=== PATIENT | female | born 1945 | race Caucasian/White ===

== ENCOUNTER → 2017-05-15 | Outpatient (REF) | payer MEDICARE, OTHER ==
[2017-05-15 12:39] LABS: CALCIUM LEVEL 9.4 MG/DL (8.8-10.2)
== END ==
LOC: M LABDRAW1 12:16
PROVIDERS: ATTEND Internal Medicine Endocrinology, Diabetes & Metabolism
DX: M81.0 Age-related osteoporosis without current pathological fracture (principal)

== ENCOUNTER → 2017-11-12 | Outpatient (REF) | payer MEDICARE, OTHER ==
[2017-11-12 12:11] LABS: CALCIUM LEVEL 9.3 MG/DL (8.8-10.2)
== END ==
LOC: M LABDRAW1 08:20
DX: M81.0 Age-related osteoporosis without current pathological fracture (principal)
CPT/HCPCS: 82310

== ENCOUNTER → 2018-04-16 | Outpatient (CLI) | payer MEDICARE, OTHER | LOC: M WUC 10:18 | DX: J18.9 Pneumonia, unspecified organism (principal); R05 Cough | CPT/HCPCS: 71046 ==

== ENCOUNTER 2018-04-19 13:08 | Inpatient (IN) | payer MEDICARE, OTHER ==
[2018-04-19] MEDS: IPRATROPIUM 0.5MG/ALBUTEROL 2.5MG INH SOL UD 3ML (DUONEB)(J7620) NEB (14:09)
[2018-04-19 14:13] LABS: ABG BASE EXCESS 2.3 (-2.0-2.0); ABG HCO3 24.8 MEQ/L (22.0-26.0); ABG O2 SATURATION 91.3 % (95.0-99.0); ABG PARTIAL PRESSURE CO2 31.9 mmHg (35.0-45.0); ABG PARTIAL PRESSURE O2 56.7 mmHg (75.0-100.0); ABG STANDARD HCO3 26.4 MEQ/L (22.0-26.0); ABG TOTAL CO2 25.7 MEQ/L (23.0-31.0); ABG pH (ARTERIAL) 7.508 UNITS (7.350-7.450)
[2018-04-19 14:25] LABS: BASO % 0.1 % (0.0-1.0); HEMATOCRIT 38.6 % (36.0-47.0); HEMOGLOBIN 13.3 g/dl (12.0-15.5); IMMATURE GRANULOCYTE % 0.8 % (0-3.0); LYMPH # 1.7 10^3/uL (1.5-4.5); LYMPH % 15.7 % (24.0-44.0); MEAN CORPUSCULAR HEMOGLOBIN 32.6 pg (27.0-33.0); MEAN CORPUSCULAR HGB CONC 34.5 g/dl (32.0-36.5); MEAN CORPUSCULAR VOLUME 94.6 fl (80.0-96.0); MONO # 0.9 10^3/uL (0.0-0.8); MONO % 8.6 % (0.0-5.0); NEUTROPHILS # 7.9 10^3/uL (1.8-7.7); NEUTROPHILS % 74.8 % (36.0-66.0); PLATELET COUNT, AUTOMATED 506 10^3/uL (150-450); RED BLOOD COUNT 4.08 10^6/uL (4.00-5.40); RED CELL DISTRIBUTION WIDTH 12.2 % (11.5-14.5); WHITE BLOOD COUNT 10.5 10^3/uL (4.0-10.0)
[2018-04-19 14:36] LABS: INR 0.94; PROTHROMBIN TIME 12.6 SECONDS (12.1-14.4)
[2018-04-19 14:59] LABS: ALBUMIN/GLOBULIN RATIO 0.81 (1.00-1.93); ALKALINE PHOSPHATASE 44 U/L (45-117); ALT/SGPT 39 U/L (12-78); ANION GAP 8 MEQ/L (8-16); AST/SGOT 19 U/L (7-37); BILIRUBIN,DIRECT 0.1 MG/DL (0.0-0.2); BILIRUBIN,TOTAL 0.4 MG/DL (0.2-1.0); BLOOD UREA NITROGEN 8 MG/DL (7-18); CALCIUM LEVEL 8.8 MG/DL (8.8-10.2); CARBON DIOXIDE LEVEL 30 MEQ/L (21-32); CHLORIDE LEVEL 99 MEQ/L (98-107); CPK CREATINE PHOSPHOKINASE 68 U/L (26-192); CREATININE FOR GFR 0.55 MG/DL (0.55-1.30); GLOMERULAR FILTRATION RATE > 60.0 (>39); GLUCOSE, FASTING 89 MG/DL (70-100); MB/CK RELATIVE INDEX 1.76 (< OR =4); NT-PRO BNP 178 PG/ML (<125); POTASSIUM SERUM 4.2 MEQ/L (3.5-5.1); SODIUM LEVEL 137 MEQ/L (136-145); THYROID STIMULATING HORMONE 0.518 uIU/ML (0.358-3.740); TOTAL PROTEIN 6.7 GM/DL (6.4-8.2); TROPONIN I < 0.02 NG/ML (< 0.10)
[2018-04-19] MEDS ORDERED: ISOVUE-370 76% 100ML VIAL (Q9967) As Ordered (15:15)
[2018-04-19] MEDS: AZITHROMYCIN INJ 500 MG, VIAL MATE ADAPTER 1 EACH in D5W 250 ML IV (16:15)
[2018-04-19] MEDS: cefTRIAXone SOD 1 GM in D5W MINI-BAG PLUS 50 ML IV (16:15)
[2018-04-19] MEDS ORDERED: ONDANSETRON 4MG/2ML VIAL (J2405) IV (17:15)
[2018-04-19] MEDS ORDERED: ACETAMINOPHEN 325 MG TAB PO (17:15)
[2018-04-19] MEDS ORDERED: IBUPROFEN 200 MG TAB PO (17:15)
[2018-04-19] MEDS ORDERED: ACETAMINOPHEN TAB 650MG DOSE (2X325MG) PO (17:31)
[2018-04-19] MEDS ORDERED: IBUPROFEN 600 MG TAB PO (17:31)
[2018-04-20] MEDS: NICOTINE 14 MG/24 HR TRANSDERMAL TD ×2 (00:31→09:00)
[2018-04-20] MEDS: predniSONE 20 MG TAB PO ×2 (00:31→09:04)
[2018-04-20 07:14] LABS: HEMOGLOBIN 13.4 g/dl (12.0-15.5); MEAN CORPUSCULAR HEMOGLOBIN 32.2 pg (27.0-33.0); MEAN CORPUSCULAR HGB CONC 33.5 g/dl (32.0-36.5); MEAN CORPUSCULAR VOLUME 96.2 fl (80.0-96.0); PLATELET COUNT, AUTOMATED 499 10^3/uL (150-450); RED BLOOD COUNT 4.16 10^6/uL (4.00-5.40); RED CELL DISTRIBUTION WIDTH 12.4 % (11.5-14.5); WHITE BLOOD COUNT 10.1 10^3/uL (4.0-10.0)
[2018-04-20 07:32] LABS: ANION GAP 7 MEQ/L (8-16); BLOOD UREA NITROGEN 8 MG/DL (7-18); CALCIUM LEVEL 8.6 MG/DL (8.8-10.2); CARBON DIOXIDE LEVEL 28 MEQ/L (21-32); CHLORIDE LEVEL 101 MEQ/L (98-107); CREATININE FOR GFR 0.48 MG/DL (0.55-1.30); GLOMERULAR FILTRATION RATE > 60.0 (>39); GLUCOSE, FASTING 155 MG/DL (70-100); POTASSIUM SERUM 3.9 MEQ/L (3.5-5.1); SODIUM LEVEL 136 MEQ/L (136-145)
[2018-04-20] MEDS: AZITHROMYCIN 250 MG TAB PO (09:04)
[2018-04-20] MEDS: VITAMIN D 1,000 INTERNATIONAL UNITS TABLET PO (09:04)
[2018-04-20] MEDS: MULTIVITAMINS/MINERALS THERAP 1 TAB PO (09:04)
[2018-04-20] MEDS: IPRATROPIUM 0.5MG/ALBUTEROL 2.5MG INH SOL UD 3ML (DUONEB)(J7620) NEB ×2 (09:36→15:01)
[2018-04-20] MEDS: ENOXAPARIN 30 MG/0.3 ML SYR (J1650) SC (13:44)
[2018-04-20] MEDS: cefTRIAXone SOD 1 GM in D5W MINI-BAG PLUS 50 ML IV (17:09)
[2018-04-20] MEDS: ALBUTEROL SULFATE 2.5 MG/0.5 ML INH NEB SOLN NEB (20:45)
[2018-04-21] MEDS: ALBUTEROL SULFATE 2.5 MG/0.5 ML INH NEB SOLN NEB ×2 (07:21→11:12)
[2018-04-21] MEDS: NICOTINE 14 MG/24 HR TRANSDERMAL TD (08:33)
[2018-04-21] MEDS: predniSONE 20 MG TAB PO (10:12)
[2018-04-21] MEDS: AZITHROMYCIN 250 MG TAB PO (10:12)
[2018-04-21] MEDS: VITAMIN D 1,000 INTERNATIONAL UNITS TABLET PO (10:12)
[2018-04-21] MEDS: MULTIVITAMINS/MINERALS THERAP 1 TAB PO (10:12)
[2018-04-21] MEDS: ENOXAPARIN 30 MG/0.3 ML SYR (J1650) SC (10:13)
== END 2018-04-21 14:52 | disposition home or self-care (01) | DRG 190 ==
LOC: M MS4PR 04-20 00:10 → M ED 13:08 → M ED INP 17:12
DX: J44.1 Chronic obstructive pulmonary disease with (acute) exacerbation (principal); J18.9 Pneumonia, unspecified organism; R91.1 Solitary pulmonary nodule; F17.210 Nicotine dependence, cigarettes, uncomplicated; Z79.52 Long term (current) use of systemic steroids; Z79.51 Long term (current) use of inhaled steroids; Z79.899 Other long term (current) drug therapy; Z88.4 Allergy status to anesthetic agent

== ENCOUNTER → 2018-05-16 | Outpatient (REF) | payer MEDICARE, OTHER ==
[2018-05-16 13:05] LABS: TOTAL 25(OH) VITAMIN D 78.7 NG/ML (30.0-100.0)
== END ==
LOC: M LABDRAW1 08:07
DX: M81.0 Age-related osteoporosis without current pathological fracture (principal); E55.9 Vitamin D deficiency, unspecified
CPT/HCPCS: 82310

== ENCOUNTER → 2018-09-18 | Outpatient (CLI) | payer MEDICARE, OTHER ==
[~2018-09-18] MED LIST: ACET1TAB55 PO; ALBU83IN INH; CALCTAB68 PO; DOXY100T PO; IBUPOTC PO; LEVA1TAB2 PO; PATA2.5S OU; PRED10TA2 PO; PRED20TA PO; SPIR1CAP INH; VITA-122 PO; VITMTA PO
--- NOTE | 2018-09-18 10:46 | REP ---
Lower Extremity vein mapping: Right Reflux Left Reflux CFV Reflux no no Ant. Acc. GSV Present no no Reflux no no Greater saph/fem junction 2.3 mm no 2.7 mm no Greater saph vein mid thigh 2.6 mm no 3.0 mm no Greater saph vein at knee 2.6 mm no 3.3 mm no Greater saph vein below knee -- mm -- --- mm -- SFV PROX -- mm no -- mm no SFV MID -- mm no -- mm no SFV DISTAL -- mm no --mm no POPLITEAL VEIN -- mm no -- mm no LSV -- mm no -- mm no Impression: There is no reflux seen in the deep or superficial venous systems in the right lower extremity or in the left lower extremity. Bilateral lower extremity deep vein duplex ultrasound: The deep veins demonstrate normal compression, normal Doppler color flow and normal Doppler waveforms with respiration and augmentation from the popliteal veins to the common femoral veins bilaterally . Impression: There is no deep vein thrombus in the right lower extremity or left lower extremity . Electronically Signed by Oscar Escobar MD 09/18/2018 10:38 A
== END ==
LOC: M RAD 08:21
PROVIDERS: ATTEND Surgery Vascular Surgery
DX: M79.604 Pain in right leg (principal); M79.605 Pain in left leg

== ENCOUNTER → 2018-11-18 | Outpatient (REF) | payer MEDICARE, OTHER | LOC: M LABDRAW1 11:59 | PROVIDERS: ATTEND Nurse Practitioner Family | DX: M81.0 Age-related osteoporosis without current pathological fracture (principal) ==

== ENCOUNTER → 2019-05-29 | Outpatient (REF) | payer MEDICARE, OTHER ==
[2019-05-29 12:34] LABS: CALCIUM LEVEL 8.9 MG/DL (8.8-10.2)
[2019-05-29 12:50] LABS: TOTAL 25(OH) VITAMIN D 56.2 NG/ML (30.0-100.0)
== END ==
LOC: M LABDRAW1 11:20
PROVIDERS: ATTEND Nurse Practitioner Family
DX: M81.0 Age-related osteoporosis without current pathological fracture (principal); E55.9 Vitamin D deficiency, unspecified

== ENCOUNTER → 2019-10-06 | Outpatient (CLI) | payer MEDICARE, OTHER ==
[~2019-10-06] MED LIST changes: +FERR325T18 PO; +OYST500T12 PO; +VITA500T9 PO
== END ==
LOC: M LABSMTC 12:22
PROVIDERS: ATTEND Anesthesiology
DX: Z11.59 Encounter for screening for other viral diseases (principal)

== ENCOUNTER 2019-10-09 11:29 | Day surgery (SDC) | payer MEDICARE, OTHER ==
[~2019-10-09] VITALS: Ht 154.9 cm; Wt 40.8 kg
[~2019-10-09 11:29] MED LIST changes: +LIDOCAINE 2% MDV 20ML VIAL As Ordered ONE; +NS 1,000 ML IV ONE; +fentaNYL 100 MCG/2 ML INJECTION (J3010) As Ordered ONE; +propofoL 500 MG/50 ML VIAL As Ordered ONE
--- NOTE | 2019-10-09 12:33 | ROOR ---
Patient Name: Jade Givens Procedure Date: 10/09/2019 11:56 AM Date of : 1945 Age: 74 Room: [facility] [place] Gender: Female Note Status: Finalized Procedure: Upper GI endoscopy Indications: Weight loss Providers: Pedrito Vazquez Jr, MD Referring MD: Mary Quach NP Requesting Provider: Medicines: Propofol per Anesthesia Complications: No immediate complications. Procedure: Pre-Anesthesia Assessment: - Prior to the procedure, a History and Physical was performed, and patient medications and allergies were reviewed. The patient is competent. The risks and benefits of the procedure and the sedation options and risks were discussed with the patient. All questions were answered and informed consent was obtained. Patient identification and proposed procedure were verified by the physician and the nurse in the pre-procedure area and in the procedure room. Mental Status Examination: alert and oriented. Airway Examination: normal oropharyngeal airway and neck mobility. Respiratory Examination: clear to auscultation. CV Examination: normal. ASA Grade Assessment: II - A patient with mild systemic disease. After reviewing the risks and benefits, the patient was deemed in satisfactory condition to undergo the procedure. The anesthesia plan was to use moderate sedation / analgesia (conscious sedation). Immediately prior to administration of medications, the patient was re-assessed for adequacy to receive sedatives. The heart rate, respiratory rate, oxygen saturations, blood pressure, adequacy of pulmonary ventilation, and response to care were monitored throughout the procedure. The physical status of the patient was re-assessed after the procedure. The Endoscope was introduced through the mouth, and advanced to the second part of duodenum. The upper GI endoscopy was accomplished without difficulty. The patient tolerated the procedure well. Findings: The upper third of the esophagus, middle third of the esophagus, lower third of the esophagus and gastroesophageal junction were normal. The cardia and gastric fundus were normal. Diffuse moderate inflammation characterized by congestion (edema), erythema, friability and granularity was found in the gastric body. Localized nodular mucosa was found in the gastric antrum. Biopsies were taken with a cold forceps for histology. The duodenal bulb, first portion of the duodenum and second portion of the duodenum were normal. Impression: - Normal upper third of esophagus, middle third of esophagus, lower third of esophagus and gastroesophageal junction. - Normal cardia and gastric fundus. - Gastritis. - Nodular mucosa in the gastric antrum WITH AN POSSIBLE SUBMUCOSAL MASS. Biopsied. - Normal duodenal bulb, first portion of the duodenum and second portion of the duodenum. Recommendation: - Discharge patient to home (ambulatory). - Return to my office in 1 week. Pedrito Vazquez MD Pedrito Vazquez Jr, MD 10/09/2019 12:32:53 PM Electronically signed by Pedrito Vazquez Jr, MD Number of Addenda: 0 Note Initiated On: 10/09/2019 11:56 AM Estimated Blood Loss: Estimated blood loss: none.
--- NOTE | 2019-10-09 12:35 | ROOR ---
Patient Name: Jade Givens Procedure Date: 10/09/2019 11:57 AM Date of : 1945 Age: 74 Room: [facility] Gender: Female Note Status: Finalized Procedure: Colonoscopy Indications: Weight loss Providers: Pedrito Vazquez Jr, MD Referring MD: Mary Quach NP Requesting Provider: Medicines: Propofol per Anesthesia Complications: No immediate complications. Procedure: Pre-Anesthesia Assessment: - Prior to the procedure, a History and Physical was performed, and patient medications and allergies were reviewed. The patient is competent. The risks and benefits of the procedure and the sedation options and risks were discussed with the patient. All questions were answered and informed consent was obtained. Patient identification and proposed procedure were verified by the physician and the nurse in the pre-procedure area and in the procedure room. Mental Status Examination: alert and oriented. Airway Examination: normal oropharyngeal airway and neck mobility. Respiratory Examination: clear to auscultation. CV Examination: normal. ASA Grade Assessment: II - A patient with mild systemic disease. After reviewing the risks and benefits, the patient was deemed in satisfactory condition to undergo the procedure. The anesthesia plan was to use moderate sedation / analgesia (conscious sedation). Immediately prior to administration of medications, the patient was re-assessed for adequacy to receive sedatives. The heart rate, respiratory rate, oxygen saturations, blood pressure, adequacy of pulmonary ventilation, and response to care were monitored throughout the procedure. The physical status of the patient was re-assessed after the procedure. The Colonoscope was introduced through the anus and advanced to the cecum, identified by appendiceal orifice and ileocecal valve. The colonoscopy was performed without difficulty. The patient tolerated the procedure well. The quality of the bowel preparation was adequate. Findings: The rectum, recto-sigmoid colon, descending colon, transverse colon, ascending colon, cecum, appendiceal orifice and ileocecal valve appeared normal. Multiple small and large-mouthed diverticula were found in the sigmoid colon. Impression: - No specimens collected. Recommendation: - Discharge patient to home (ambulatory). - Repeat colonoscopy in 10 years for screening purposes. Pedrito Vazquez MD Pedrito Vazquez Jr, MD 10/09/2019 12:34:35 PM Electronically signed by Pedrito Vazquez Jr, MD Number of Addenda: 0 Note Initiated On: 10/09/2019 11:57 AM Estimated Blood Loss: Estimated blood loss: none. Estimated blood loss: none.
[2019-10-09 13:01] VITALS: BP 169/70
== END 2019-10-09 13:28 | disposition home or self-care (01) ==
LOC: M OPP 11:29
PROVIDERS: ATTEND Surgery
DX: K29.70 Gastritis, unspecified, without bleeding (principal); K31.89 Other diseases of stomach and duodenum; R63.4 Abnormal weight loss; J44.9 Chronic obstructive pulmonary disease, unspecified; F17.220 Nicotine dependence, chewing tobacco, uncomplicated; Z88.6 Allergy status to analgesic agent; Z79.899 Other long term (current) drug therapy
CPT/HCPCS: 43239; 45378; 88305; 88341; 88342; J3010

== ENCOUNTER → 2019-10-21 | Outpatient (CLI) | payer MEDICARE, OTHER ==
[~2019-10-21] MED LIST changes: -LIDOCAINE 2% MDV 20ML VIAL As Ordered ONE; -NS 1,000 ML IV ONE; -fentaNYL 100 MCG/2 ML INJECTION (J3010) As Ordered ONE; -propofoL 500 MG/50 ML VIAL As Ordered ONE
[2019-10-21 14:19] LABS: BLOOD UREA NITROGEN 13 MG/DL (7-18); CREATININE FOR GFR 0.47 MG/DL (0.55-1.30); GLOMERULAR FILTRATION RATE > 60.0 (>39)
== END ==
LOC: M LAB 12:59
PROVIDERS: ATTEND Surgery
DX: Z01.818 Encounter for other preprocedural examination (principal); R63.4 Abnormal weight loss

== ENCOUNTER → 2019-10-31 | Outpatient (CLI) | payer MEDICARE, OTHER ==
[~2019-10-31] MED LIST changes: +GASTROGRAFIN SOLUTION 30ML (Q9963) As Ordered ONE; +ISOVUE-370 76% 100ML VIAL As Ordered ONE; +PANT40TA3 PO; +TRAM50TA2 PO
--- NOTE | 2019-10-31 10:51 | REP ---
CT ABDOMEN AND PELVIS WITH ORAL AND IV CONTRAST, CT ABDOMEN WITHOUT IV CONTRAST: CT abdomen and pelvis performed following the administration of oral contrast and IV administration of 100 mL of Isovue 370. Pre-IV contrast CT imaging is performed of the abdomen. Sagittal and coronal reconstruction images are performed. There is evidence of advanced neoplastic disease. A prominent old mass in the body and tail of the pancreas measures 4.7 x 2.9 cm. There is adjacent bulky adenopathy which encases the celiac artery and superior mesenteric artery. There is bulky adenopathy along the posterior wall of the stomach in the region of the body and antrum of the stomach, with neoplastic wall thickening of this portion of the stomach. Multiple enhancing soft tissue nodules are seen throughout the mesentery, omentum, and perineal surfaces. Multiple innumerable liver metastases are present, the largest is inferiorly in the right lobe 5.4 cm in diameter. Gallbladder is not well distended. Spleen is normal in size with no intrinsic abnormality The adrenal glands demonstrate no mass. The kidneys demonstrate on mass. There are mildly enlarged periaortic lymph nodes. There is no abdominal aortic aneurysm. There is no free air. There is no evidence of bowel obstruction. There are multiple sigmoid diverticula. There may be some neoplastic wall thickening of the inferior right colon. There is moderate diffuse abdominal and pelvic ascites. No pelvic mass is seen. Urinary bladder is not well distended and not well evaluated. No bone lesion is seen. Lung bases show fibroatelectatic change. 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 Prominent pancreatic mass measures 4.7 x 2.9 cm. There is an adjacent bulky adenopathy encasing the celiac and superior mesenteric arteries. Bulky adenopathy is seen posterior to the stomach with neoplastic wall thickening of the body of the stomach. Diffuse mesenteric adenopathy and scattered omental and peritoneal implants diffusely. There may be some neoplastic wall thickening of the inferior right colon. There are multiple innumerable liver metastases. There is moderate abdominal and pelvic ascites. Electronically Signed by Oscar Sheets MD 10/31/2019 10:54 A
== END ==
LOC: M RAD 07:17
PROVIDERS: ATTEND Surgery
DX: R63.4 Abnormal weight loss (principal); R10.84 Generalized abdominal pain; C78.7 Secondary malignant neoplasm of liver and intrahepatic bile duct; R18.8 Other ascites; C76.8 Malignant neoplasm of other specified ill-defined sites
CPT/HCPCS: 74178; Q9963; Q9967

== ENCOUNTER → 2019-11-05 | Outpatient (CLI) | payer MEDICARE, OTHER ==
[~2019-11-05] MED LIST changes: -GASTROGRAFIN SOLUTION 30ML (Q9963) As Ordered ONE; -ISOVUE-370 76% 100ML VIAL As Ordered ONE
[2019-11-05 15:02] LABS: ALBUMIN 2.7 GM/DL (3.2-5.2); ALT/SGPT 49 U/L (12-78); BILIRUBIN,TOTAL 2.9 MG/DL (0.2-1.0); BLOOD UREA NITROGEN 12 MG/DL (7-18); CARBON DIOXIDE LEVEL 35 MEQ/L (21-32); CHLORIDE LEVEL 92 MEQ/L (98-107); GLOMERULAR FILTRATION RATE > 60.0 (>39); GLUCOSE, FASTING 102 MG/DL (70-100); POTASSIUM SERUM 3.2 MEQ/L (3.5-5.1); SODIUM LEVEL 133 MEQ/L (136-145); TOTAL PROTEIN 6.1 GM/DL (6.4-8.2)
[2019-11-07 12:46] LABS: CA 125 1070.3 U/ML (<30.2)
== END ==
LOC: M LAB 14:04
PROVIDERS: ATTEND Surgery
DX: R63.4 Abnormal weight loss (principal); R93.3 Abnormal findings on diagnostic imaging of other parts of digestive tract

== ENCOUNTER → 2019-11-07 | Outpatient (CLI) | payer MEDICARE, OTHER ==
[2019-11-07 14:06] LABS: INR 1.06; PROTHROMBIN TIME 13.5 SECONDS (11.8-14.0)
[2019-11-07 23:40] LABS: ALBUMIN 2.5 GM/DL (3.2-5.2); ALT/SGPT 42 U/L (12-78); BILIRUBIN,TOTAL 2.9 MG/DL (0.2-1.0); BLOOD UREA NITROGEN 14 MG/DL (7-18); CA 125 1074.5 U/ML (<30.2); CALCIUM LEVEL 9.1 MG/DL (8.8-10.2); CARBON DIOXIDE LEVEL 35 MEQ/L (21-32); CHLORIDE LEVEL 91 MEQ/L (98-107); CREATININE FOR GFR 0.45 MG/DL (0.55-1.30); GLOMERULAR FILTRATION RATE > 60.0 (>39); GLUCOSE, FASTING 122 MG/DL (70-100); SODIUM LEVEL 131 MEQ/L (136-145); TOTAL PROTEIN 5.9 GM/DL (6.4-8.2)
== END ==
LOC: M LAB 13:10
PROVIDERS: ATTEND Surgery
DX: R63.4 Abnormal weight loss (principal); R93.3 Abnormal findings on diagnostic imaging of other parts of digestive tract; Z79.01 Long term (current) use of anticoagulants; J44.9 Chronic obstructive pulmonary disease, unspecified; K21.9 Gastro-esophageal reflux disease without esophagitis; Z79.899 Other long term (current) drug therapy

== ENCOUNTER → 2019-11-12 | Outpatient (CLI) | payer MEDICARE, OTHER ==
[~2019-11-12] MED LIST changes: +LIDOCAINE 1% MDV 20ML VIAL As Ordered ONE
[2019-11-12 13:15] VITALS: BP 151/70
--- NOTE | 2019-11-12 21:44 | REP ---
Ultrasound-guided paracentesis The procedure was performed under the direct supervision of Dr. Sheets. The risks and benefits of the procedure were explained to the patient and informed consent was obtained. The largest pocket of fluid was localized in the right flank in using ultrasound guidance. The skin was prepped and draped in a sterile fashion. 1% lidocaine was used as a local anesthetic. Using ultrasound guidance an 8-[place] multi side-hole catheter was inserted using trocar technique. 1350 ml of yellow fluid was withdrawn with a sample sent to the lab for analysis. The patient tolerated the procedure well and there were no immediate complications. After the appropriate amount of monitored convalescence the patient was discharged from the department. Electronically Signed by BROOKE Baumann 11/12/2019 03:38 P Electronically Signed by Oscar Sheets MD 11/12/2019 09:36 P
--- NOTE | 2019-11-12 21:45 | REP ---
ULTRASOUND-GUIDED LIVER BIOPSY The procedure was performed under the direct supervision of Dr. Sheets. The patient has a history of multiple, innumerable liver metastases seen on a previous CT scan dated 10/31/2019. The risks and benefits of the procedure were explained to the patient and informed consent was obtained. A lesion in the left lobe of the liver was localized using ultrasound guidance. The skin was prepped and draped in a sterile fashion. 1% lidocaine was used as a local anesthetic. Using ultrasound guidance a 19/20 gauge coaxial needle biopsy system was inserted and advanced into the lesion. Six core biopsy samples were obtained and sent to lab. The patient tolerated the procedure well and there were no immediate complications. After the appropriate amount of monitored convalescence the patient was discharged from the department. Electronically Signed by BROOKE Baumann 11/12/2019 03:40 P Electronically Signed by Oscar Sheets MD 11/12/2019 09:36 P
== END ==
LOC: M IRPRO 10:25
PROVIDERS: ATTEND Surgery
DX: C22.0 Liver cell carcinoma (principal); R93.3 Abnormal findings on diagnostic imaging of other parts of digestive tract; R63.4 Abnormal weight loss